=== PATIENT | male | born 1965 | race Caucasian/White ===

== ENCOUNTER 2017-05-09 19:58 | Emergency (ER) | payer OTHER ==
[~2017-05-09] VITALS: Ht 175.3 cm; Wt 105.0 kg
[~2017-05-09 19:58] MED LIST: AMOXICILLIN500 MG PO; ASPIRIN LOW81 M1 PO; BENZONATATE200 MG PO; CEPHALEXIN500 MG PO; CIPRODEX1 ML AS; CIPROFLOXACN500 MG PO; DULCOLAX SS100 MG PO; FLEXERIL PO; HYDROCHLOROT12.5 MG PO; LISINOP/HCTZ1 TAB PO; LISINOPRIL10 MG PO; LORTAB5 PO; LOSARTAN POT50 MG PO; LOSARTAN POTASS50 MG PO; MUCINEX600 MG PO; NO; NORCO1 TA1 PO; NORVASC PO; NORVASC10 M1 PO; PERCOCET 5/325M1 TAB PO; ULTRAM50 M1 PO
[2017-05-09 21:39] LABS: HEMATOCRIT 43.4 % (39.0-50.0); HEMOGLOBIN 15.1 g/dl (14.0-18.0); IMMATURE GRANULOCYTES 0.8 % (0.0-1.0); MEAN CELL VOLUME 83.9 fL CALC (80.0-100.0); MEAN CORPUSCULAR HGB 29.2 pG CALC (26.0-32.0); MEAN CORPUSCULAR HGB CONC 34.8 g/L CALC (32.0-36.0); NEUT# 10.43 thou/uL (1.82-7.42); RED BLOOD COUNT 5.17 mill/uL (4.70-6.10); RED CELL DISTRI WIDTH 13.1 % (11.5-15.5)
[2017-05-09 22:02] LABS: ALBUMIN 4.2 g/dL (3.2-5.0); ALKALINE PHOSPHATASE 81 u/l (38-126); AMYLASE 63 u/l (30-110); ANION GAP 16 (6-22 (CALC)); BILIRUBIN, TOTAL 0.6 mg/dL (0.0-1.4); BUN 13 mg/dL (9-20); BUN/CREATININE RATIO 13 (12-20 (CALC)); CALCIUM 9.3 mg/dL (8.4-10.2); CARBON DIOXIDE 22 mmol/l (22-30); CHLORIDE 106 mmol/l (95-108); GFR > 60 ML/MIN (>=60 (CALC)); GFR FOR AFR.AMER. > 60 ML/MIN (>=60 (CALC)); GLUCOSE 117 mg/dL (75-110); LIPASE 130 u/l (23-300); SGOT/AST 23 u/l (17-59); SGPT/ALT 43 u/l (21-72); SODIUM 140 mmol/l (137-146); TOTAL PROTEIN 7.1 g/dL (6.3-8.2)
[2017-05-09 23:11] LABS: URINE BILIRUBIN - DIPSTICK NEGATIVE (NEGATIVE); URINE BLOOD DIPSTICK NEGATIVE (NEGATIVE); URINE CLARITY CLEAR; URINE COLOR YELLOW; URINE GLUCOSE - DIPSTICK NEGATIVE (NEGATIVE); URINE KETONE NEGATIVE (NEGATIVE); URINE LEUK ESTERASE NEGATIVE (NEGATIVE); URINE NITRITE - DIPSTICK NEGATIVE (Negative); URINE PH 5.5 (4.5-8.0); URINE PROTEIN - DIPSTICK NEGATIVE (NEG-TRACE); URINE SPECIFIC GRAVITY 1.025; URINE UROBILINOGEN - DIPSTICK 0.2 E.U./dL (0.2)
[2017-05-09] MEDS ORDERED: ULTRAM50 M1 PO (23:26)
[2017-05-09 23:35] VITALS: BP 168/74
== END 2017-05-09 23:35 | disposition home or self-care (01) | DRG 395 ==
LOC: ED 19:58
PROVIDERS: Emergency Medicine
DX: K40.90 Unilateral inguinal hernia, without obstruction or gangrene, not specified as recurrent (principal); I10 Essential (primary) hypertension
CPT/HCPCS: Q9967

== ENCOUNTER 2017-10-11 04:11 | Emergency (ER) | payer OTHER ==
[~2017-10-11] VITALS: Ht 175.3 cm; Wt 100.0 kg
[2017-10-11 04:49] LABS: HEMATOCRIT 48.1 % (39.0-50.0); HEMOGLOBIN 16.6 g/dl (14.0-18.0); IMMATURE GRANULOCYTES 0.9 % (0.0-1.0); MEAN CORPUSCULAR HGB 29.7 pG CALC (26.0-32.0); MEAN CORPUSCULAR HGB CONC 34.5 g/L CALC (32.0-36.0); NEUT# 7.28 thou/uL (1.82-7.42); RED BLOOD COUNT 5.59 mill/uL (4.70-6.10); RED CELL DISTRI WIDTH 13.8 % (11.5-15.5)
[2017-10-11 04:55] LABS: ANION GAP 16 (6-22 (CALC)); BUN 17 mg/dL (9-20); BUN/CREATININE RATIO 16 (12-20 (CALC)); CARBON DIOXIDE 23 mmol/l (22-30); CHLORIDE 110 mmol/l (95-108); GFR > 60 ML/MIN (>=60 (CALC)); GFR FOR AFR.AMER. > 60 ML/MIN (>=60 (CALC)); POTASSIUM 3.8 mmol/l (3.5-5.1); SODIUM 145 mmol/l (137-146)
[2017-10-11 04:57] LABS: INTERNATIONAL NORMALIZED RATIO 0.9 RATIO (0.7-1.3); PROTHROMBIN TIME 10.2 SECONDS (9.0-12.5)
[2017-10-11] MEDS ORDERED: ASPIRIN EC325 MG PO (05:01)
[2017-10-11 05:31] VITALS: BP 166/88
== END 2017-10-11 06:00 | disposition short-term general hospital (02) | DRG 282 ==
LOC: ED 04:11
PROVIDERS: Family Medicine
DX: I21.19 ST elevation (STEMI) myocardial infarction involving other coronary artery of inferior wall (principal); I10 Essential (primary) hypertension; R07.9 Chest pain, unspecified

== ENCOUNTER 2018-03-31 00:29 | Observation (INO) | payer OTHER ==
[~2018-03-31] VITALS: Ht 175.3 cm; Wt 100.4 kg
[~2018-03-31 00:29] MED LIST changes: +ASPIRIN EC325 MG PO
--- NOTE | 2018-03-31 00:41 | NUR ---
PT TO ROOM AMBULATORY
--- NOTE | 2018-03-31 01:26 | NUR ---
IV STARTED AND LABS DRAWN. XRAY NOW AT BEDSIDE.
[2018-03-31 01:31] LABS: IMMATURE GRANULOCYTES 0.7 % (0.0-5.0); MEAN CELL VOLUME 83.9 fL CALC (80.0-100.0); MEAN CORPUSCULAR HGB CONC 34.6 g/L CALC (32.0-36.0); NEUT# 9.67 thou/uL (1.82-7.42); RED BLOOD COUNT 4.96 mill/uL (4.70-6.10); RED CELL DISTRI WIDTH 15.1 % (11.5-15.5)
[2018-03-31 01:32] LABS: HEMATOCRIT 41.6 % (39.0-50.0); HEMOGLOBIN 14.4 g/dl (14.0-18.0)
[2018-03-31 01:44] LABS: ALBUMIN 3.6 g/dL (3.2-5.0); AMYLASE 38 u/l (30-110); ANION GAP 16 (6-22 (CALC)); BILIRUBIN, TOTAL 1.1 mg/dL (0.0-1.4); BUN 16 mg/dL (9-20); BUN/CREATININE RATIO 17 (12-20 (CALC)); CARBON DIOXIDE 25 mmol/l (22-30); CHLORIDE 106 mmol/l (95-108); CREATININE 0.9 mg/dL (0.7-1.3); GFR > 60 ML/MIN (>=60 (CALC)); GFR FOR AFR.AMER. > 60 ML/MIN (>=60 (CALC)); LIPASE 70 u/l (23-300); POTASSIUM 4.2 mmol/l (3.5-5.1); SGOT/AST 20 u/l (17-59); SGPT/ALT 29 u/l (21-72); SODIUM 142 mmol/l (137-146); TOTAL PROTEIN 6.5 g/dL (6.3-8.2)
[2018-03-31 01:45] LABS: ALKALINE PHOSPHATASE 123 u/l (38-126)
--- NOTE | 2018-03-31 01:50 | NUR ---
PT VOIDED A SMALL AMT. URINE SENT
--- NOTE | 2018-03-31 01:52 | NUR ---
PT TO CT VIA STRETCHER
[2018-03-31 01:53] LABS: URINE BILIRUBIN - DIPSTICK NEGATIVE (NEGATIVE); URINE BLOOD DIPSTICK NEGATIVE (NEGATIVE); URINE COLOR YELLOW; URINE GLUCOSE - DIPSTICK NEGATIVE (NEGATIVE); URINE KETONE NEGATIVE (NEGATIVE); URINE LEUK ESTERASE NEGATIVE (NEGATIVE); URINE NITRITE - DIPSTICK NEGATIVE (Negative); URINE PH 6.5 (4.5-8.0); URINE PROTEIN - DIPSTICK NEGATIVE (NEG-TRACE)
[2018-03-31 01:54] LABS: URINE CLARITY CLEAR
--- NOTE | 2018-03-31 02:12 | NUR ---
RETURNED FROM XRAY. FLUIDS RE CONNECTED.
--- NOTE | 2018-03-31 02:55 | NUR ---
AT BEDSIDE TO DISCUSS PLAN OF CARE.
[2018-03-31] MEDS ORDERED: LIPITOR80 M1 PO (03:22)
[2018-03-31] MEDS ORDERED: LOSARTAN POT50 MG PO (03:23)
[2018-03-31] MEDS ORDERED: METOPROLOL SUCC50 MG PO (03:23)
--- NOTE | 2018-03-31 03:26 | NUR ---
REPORT TO FRAYA/MED SURG.
--- NOTE | 2018-03-31 03:40 | NUR ---
TO FLOOR VIA STRETCHER WITH IV'S/PUMPS. WITHOUT INCIDENT.
[2018-03-31 03:45] VITALS: BP 158/95
--- NOTE | 2018-03-31 03:45 | NUR ---
PT ARRIVED TO THE FLOOR VIA STRETCHER ACCOMPANIED BY ED NURSE. PT APPEARS TO BE IN STABLE CONDITION UPON ARRIVING TO THE FLOOR. V/S ARE BEING ASSESSED AND PT ORIENTED TO ROOM,CALL SYSTEM,LIGHTS,BED AND TV. PT REQUESTING SOMETHING TO DRINK/PT IS NPO/PROVIDED PT W/MOUTH SWABS FOR COMFORT. IV FLAGYL AND NS ARE RUNNING AT THIS TIME. WILL FOLLOW-UP WITH ZOSYN ORDERED AND FULL ASSESSMENT.
--- NOTE | 2018-03-31 04:26 | NUR ---
PT ASSESSED, LUNG SOUNDS ARE CLEAR, ABD SOFT TENDER TO RIGHT LOWER QUAD, SKIN INTACT, NEURO'S INTACT, BM REPORTED 24HRS AGO AND DENIES DIFFICULTY URINATING, DENIES N/V/SOB OR DIZZINESS. PT ENCOURAGED TO CALL FOR ASSISTANCE AMBULATING DUE TO IV AND MEDICATIONS. PT C/O BEING COLD, BLANKET PROVIDED AND ROOM TURNED WARMER. CALL LIGHT AT SIDE, LIGHTS TURNED LOW
[2018-03-31 07:17] VITALS: BP 135/73
--- NOTE | 2018-03-31 07:17 | NUR ---
PT RESTING IN BED, IVF INFUSING IV SITE APPEARS WELL. PT STATES THAT HE DOES NOT HAVE ANY PAIN AT THIS TIME, ONLY TENDER. REQUESTING FOOD, DISCUSSED POC WITH PT, REINFORCED NPO UNTIL SEEN BY . PT IN AGREEMENT. VSS, ASSESSMENT COMPLETED AT THIS TIME. CALL LIGHT IN REACH,CONTINUE TO MONITOR.
--- NOTE | 2018-03-31 08:55 | NUR ---
ENTERED ROOM WITH OR NURSE DISCUSSED PLAN FOR SURGERY, PT IN AGREEMENT. STATES,"MAKE SURE I HAVE FOOD WHEN I GET BACK" JOKINGLY WITH COOLING SYSTEM OPERATOR. DENTURES AND GLASSES REMOVED AND PLACED ON BEDSIDE TABLE,PT AMBULATED WELL TO STRETCHER.TAKEN DOWN TO OR VIA STRETCHER ACCOMPANIED BY OR NURSE. OR PACKET COMPLETED, AND GIVEN TO OR NURSE.
[2018-03-31 09:31] VITALS: BP 146/74
--- NOTE | 2018-03-31 10:09 | NUR ---
RECEIVED CALL FROM OR PT TO BE TRANSFERRED TO [facility] FOR SURGERY, DUE TO RECENT CARDIAC SURGERY. CALLED [facility] AND FAXED FACE SHEET. WILL RECEIVE A CALL BACK FROM FACILITY.
--- NOTE | 2018-03-31 10:17 | NUR ---
PT RETURNED FROM OR, VIA STRETCHER, SPOKE WITH OR NURSE. CALL LIGHT IN REACH,CONTINUE TO MONITOR.
--- NOTE | 2018-03-31 11:36 | NUR ---
CALL RECEIVED FROM HANNAH AT [facility], ACCEPTANCE BY WILL RETURN CALL WITH BED NUMBER. CONSENT FOR TRANSFER OBTAINED, DISCUSSED PLANS AND TRANSFER PROCESS WITH PT AND FAMILY. CALL LIGHT IN REACH,CONTINUE TO MONITOR.
--- NOTE | 2018-03-31 12:08 | NUR ---
ENTERED ROOM TO START IV ANTIBIOTIC. PT UPSET AND STATES, "I'M THINKING I MIGHT JUST GO AHEAD AND LEAVE AND DRIVE MYSELF TO [place], BECAUSE I'M TIRED OF WAITING." INFORMED PT THAT HE HAS PT RIGHTS AND MAY LEAVE AMA BUT IF HE WENT TO [facility] HIMSELF HE WOULD HAVE TO BE SEEN IN THE ER AND HAVE A WORK UP DONE. PT REPLIED,"IF YOU DONT HEAR ANYTHING ABOUT A BED BY 1 o' CLOCK I'M LEAVING." NOTIFIED NURSING PAVING INSPECTOR, AWAITING ARRIVAL.
--- NOTE | 2018-03-31 12:42 | NUR ---
NURSING STAFF WEAPONS OFFICER TO FLOOR, DISCUSSED POC FOR PT, STAFF WEAPONS OFFICER CALLED AND SPOKE WITH HANANH AT [facility]. THEN ENTERED ROOM TO DISCUSS POC. PT DECIDED HE WOULD STAY AND FOLLOW THROUGH WITH TRANSFER FROM OUR FACILITY. CALL LIGHT IN REACH,CONTINUE TO MONITOR.
--- NOTE | 2018-03-31 14:11 | NUR ---
RECEIVED CALL FROM [facility] PT HAS A BED, 6[facility]B AT [facility]. TRANSPORT CALLED AND ETA 1600. PT AND NOTIFIED. BOTH IN AGREEMENT. CALL LIGHT IN REACH,CONTINUE TO MONITOR.
--- NOTE | 2018-03-31 16:07 | NUR ---
[facility] CALLED ETA 20-30 MIN, PT AND NOTIFIED. CONTINUE TO MONITOR.
--- NOTE | 2018-03-31 16:33 | NUR ---
[facility] AT BEDSIDE, PT TAKEN TO [facility] VIA STRETCHER ACCOMPANIED BY TRANSPORT TEAM.
--- NOTE | 2018-03-31 16:38 | NUR ---
Discharge instructions given. Patient verbalizes understanding of same. Discharged in stable condition via Stretcher to [facility] with spouse. All belongings sent with pt.
--- NOTE | 2018-03-31 16:56 | NUR ---
REPORT CALLED TO [facility] AT [facility]
== END 2018-03-31 16:38 | disposition short-term general hospital (02) | DRG 395 ==
LOC: ED 00:29 → ED-I 02:30 → ED 03:00 → MS2 03:01
PROVIDERS: Emergency Medicine; ADMIT Internal Medicine; ATTEND Internal Medicine
DX: K35.80 Unspecified acute appendicitis (principal); I10 Essential (primary) hypertension; I25.10 Atherosclerotic heart disease of native coronary artery without angina pectoris; I48.91 Unspecified atrial fibrillation; I25.2 Old myocardial infarction; F17.210 Nicotine dependence, cigarettes, uncomplicated; Z95.1 Presence of aortocoronary bypass graft
CPT/HCPCS: G0378; Q9967; S0164

== ENCOUNTER 2019-01-15 19:23 | Emergency (ER) | payer OTHER ==
[~2019-01-15] VITALS: Ht 175.3 cm; Wt 97.0 kg
[~2019-01-15 19:23] MED LIST changes: +LIPITOR80 M1 PO; +METOPROLOL SUCC50 MG PO
[2019-01-15 20:06] LABS: HEMOGLOBIN 14.6 g/dl (14.0-18.0); IMMATURE GRANULOCYTES 0.9 % (0.0-5.0); MEAN CELL VOLUME 86.3 fL CALC (80.0-100.0); MEAN CORPUSCULAR HGB 29.3 pG CALC (26.0-32.0); NEUT# 7.17 thou/uL (1.82-7.42); RED BLOOD COUNT 4.98 mill/uL (4.70-6.10); RED CELL DISTRI WIDTH 13.6 % (11.5-15.5)
[2019-01-15] MEDS ORDERED: ASPIRIN81 MG PO (20:16)
[2019-01-15 20:20] LABS: ALKALINE PHOSPHATASE 120 u/l (38-126); ANION GAP 14 (6-22 (CALC)); BILIRUBIN, TOTAL 0.7 mg/dL (0.0-1.4); BUN 17 mg/dL (9-20); BUN/CREATININE RATIO 17 (12-20 (CALC)); CARBON DIOXIDE 22 mmol/l (22-30); CHLORIDE 109 mmol/l (95-108); ETHYL ALCOHOL 0 mg/dl (0-30); GFR > 60 ML/MIN (>=60 (CALC)); GFR FOR AFR.AMER. > 60 ML/MIN (>=60 (CALC)); POTASSIUM 3.9 mmol/l (3.5-5.1); SGOT/AST 21 u/l (17-59); SODIUM 141 mmol/l (137-146); TOTAL PROTEIN 6.9 g/dL (6.3-8.2)
[2019-01-15 20:30] LABS: MYOGLOBIN 42 ng/mL (0 - 121)
[2019-01-15 20:33] LABS: URINE BILIRUBIN - DIPSTICK NEGATIVE (NEGATIVE); URINE BLOOD DIPSTICK TRACE-INTACT (NEGATIVE); URINE COLOR YELLOW; URINE GLUCOSE - DIPSTICK NEGATIVE (NEGATIVE); URINE KETONE NEGATIVE (NEGATIVE); URINE LEUK ESTERASE NEGATIVE (NEGATIVE); URINE NITRITE - DIPSTICK NEGATIVE (Negative); URINE PH 5.5 (4.5-8.0); URINE PROTEIN - DIPSTICK NEGATIVE (NEG-TRACE); URINE SPECIFIC GRAVITY 1.025; URINE UROBILINOGEN - DIPSTICK 0.2 E.U./dL (0.2)
[2019-01-15 20:34] LABS: BARBITURATES NEGATIVE (NEGATIVE); COCAINE NEGATIVE (NEGATIVE); METHADONE NEGATIVE (NEGATIVE); OXCYCODONE NEGATIVE (NEGATIVE); TETRAHYDROCANNABIONOL NEGATIVE (NEGATIVE); TRICYLIC ANTIDEPRESSANTS NEGATIVE (NEGATIVE)
[2019-01-15 23:40] VITALS: BP 152/64
== END 2019-01-16 00:04 | disposition home or self-care (01) | DRG 310 ==
LOC: ED 19:23
PROVIDERS: Emergency Medicine
DX: R00.2 Palpitations (principal); I10 Essential (primary) hypertension; F17.200 Nicotine dependence, unspecified, uncomplicated; I25.2 Old myocardial infarction; Z95.1 Presence of aortocoronary bypass graft

== ENCOUNTER 2021-04-11 11:37 | Observation (INO) | payer OTHER ==
[~2021-04-11] VITALS: Ht 175.3 cm; Wt 105.0 kg
[~2021-04-11 11:37] MED LIST changes: +ASPIRIN81 MG PO
[2021-04-11 13:00] LABS: HEMATOCRIT 39.8 % (39.0-50.0); HEMOGLOBIN 13.9 g/dl (14.0-18.0); IMMATURE GRANULOCYTES 0.5 % (0.0-5.0); MEAN CELL VOLUME 83.3 fL CALC (80.0-100.0); MEAN CORPUSCULAR HGB 29.1 pG CALC (26.0-32.0); MEAN CORPUSCULAR HGB CONC 34.9 g/dL CAL (32.0-36.0); NEUT# 8.12 thou/uL (1.82-7.42); RED BLOOD COUNT 4.78 mill/uL (4.70-6.10); RED CELL DISTRI WIDTH 13.4 % (11.5-15.5)
[2021-04-11 13:11] LABS: ALBUMIN 3.6 g/dL (3.2-5.0); ALKALINE PHOSPHATASE 180 u/l (38-126); BUN 13 mg/dL (9-20); BUN/CREATININE RATIO 13 (12-20 (CALC)); CARBON DIOXIDE 22 mmol/l (22-30); GFR > 60 ML/MIN (>=60 (CALC)); GFR FOR AFR.AMER. > 60 ML/MIN (>=60 (CALC)); POTASSIUM 3.9 mmol/l (3.5-5.1)
[2021-04-11 13:15] LABS: ANION GAP 12 (6-22 (CALC)); BILIRUBIN, TOTAL 1.6 mg/dL (0.0-1.4); CHLORIDE 94 mmol/l (95-108); SGOT/AST 57 u/l (17-59); SODIUM 124 mmol/l (137-146)
[2021-04-11 19:48] VITALS: BP 94/48
[2021-04-11 22:48] VITALS: BP 103/59
[2021-04-12 00:48] VITALS: BP 114/60
[2021-04-12 03:48] VITALS: BP 94/54
[2021-04-12 06:01] LABS: HEMATOCRIT 35.6 % (39.0-50.0); HEMOGLOBIN 12.6 g/dl (14.0-18.0); MEAN CELL VOLUME 84.2 fL CALC (80.0-100.0); MEAN CORPUSCULAR HGB 29.8 pG CALC (26.0-32.0); MEAN CORPUSCULAR HGB CONC 35.4 g/dL CAL (32.0-36.0); RED BLOOD COUNT 4.23 mill/uL (4.70-6.10); RED CELL DISTRI WIDTH 13.6 % (11.5-15.5)
[2021-04-12 06:29] LABS: ANION GAP 10 (6-22 (CALC)); BUN 12 mg/dL (9-20); BUN/CREATININE RATIO 15 (12-20 (CALC)); CARBON DIOXIDE 22 mmol/l (22-30); CHLORIDE 100 mmol/l (95-108); CREATININE 0.8 mg/dL (0.7-1.3); GFR > 60 ML/MIN (>=60 (CALC)); GFR FOR AFR.AMER. > 60 ML/MIN (>=60 (CALC)); MAGNESIUM 2.3 mg/dL (1.6-2.3); POTASSIUM 3.8 mmol/l (3.5-5.1); SODIUM 129 mmol/l (137-146)
[2021-04-12] MEDS ORDERED: OMNICEF300 MG PO (10:24)
[2021-04-12] MEDS ORDERED: AZITHROMYCIN500 MG PO (10:25)
[2021-04-12 12:08] VITALS: BP 118/61
== END 2021-04-12 13:56 | disposition home or self-care (01) | DRG 194 ==
LOC: ED 11:37 → ED-I 14:00 → ED 14:19 → ED-I 14:20
PROVIDERS: Family Medicine; Nurse Practitioner; ADMIT Hospitalist; ATTEND Hospitalist
DX: J18.9 Pneumonia, unspecified organism (principal); E87.1 Hypo-osmolality and hyponatremia; I10 Essential (primary) hypertension; I25.10 Atherosclerotic heart disease of native coronary artery without angina pectoris; E78.5 Hyperlipidemia, unspecified; I25.2 Old myocardial infarction; F17.200 Nicotine dependence, unspecified, uncomplicated; Z95.1 Presence of aortocoronary bypass graft; Z20.822 Contact with and (suspected) exposure to COVID-19
CPT/HCPCS: J1650

== ENCOUNTER 2022-08-20 22:37 | Observation (INO) | payer OTHER ==
[~2022-08-20] VITALS: Ht 175.3 cm; Wt 102.0 kg
[~2022-08-20 22:37] MED LIST changes: +AZITHROMYCIN500 MG PO; +OMNICEF300 MG PO
[2022-08-20 22:49] VITALS: BP 165/89
[2022-08-20 23:01] VITALS: BP 138/83
[2022-08-20 23:16] VITALS: BP 121/83
[2022-08-20 23:19] LABS: BASO% 0.6 % (0-3); EOS% 2.3 % (0-8); IMMATURE GRANULOCYTES 0.4 % (0.0-5.0); LYMPH% 21.2 % (15-41); MEAN CELL VOLUME 83.1 fL CALC (80.0-100.0); MEAN CORPUSCULAR HGB CONC 34.9 g/dL CAL (32.0-36.0); MONO% 9.4 % (2-13); NEUT# 8.32 thou/uL (1.82-7.42); NEUT% 66.1 % (42-76); RED BLOOD COUNT 5.27 mill/uL (4.70-6.10); RED CELL DISTRI WIDTH 14.5 % (11.5-15.5)
[2022-08-20 23:31] VITALS: BP 93/61
[2022-08-20 23:32] LABS: HEMATOCRIT 43.8 % (39.0-50.0); HEMOGLOBIN 15.3 g/dl (14.0-18.0)
[2022-08-20 23:34] LABS: D-DIMER 0.31 mg/L (0.19-0.60)
[2022-08-20 23:40] LABS: ACT PARTIAL THROMBO TIME 28.7 SECONDS (20.0-32.5); INTERNATIONAL NORMALIZED RATIO 1.1 RATIO (0.7-1.3); PROTHROMBIN TIME 10.5 SECONDS (9.0-12.5)
[2022-08-20 23:45] VITALS: BP 103/74
[2022-08-20 23:45] LABS: ALBUMIN 3.8 g/dL (3.2-5.0); ALKALINE PHOSPHATASE 126 u/l (38-126); BUN 23 mg/dL (9-20); CARBON DIOXIDE 24 mmol/l (22-30); CHLORIDE 106 mmol/l (95-108); POTASSIUM 4.1 mmol/l (3.5-5.1); SGOT/AST 30 u/l (17-59); TOTAL PROTEIN 6.7 g/dL (6.3-8.2)
[2022-08-20 23:51] LABS: ANION GAP 12 (6-22 (CALC)); BILIRUBIN, TOTAL 0.7 mg/dL (0.0-1.4); BUN/CREATININE RATIO 12 (12-20 (CALC)); GFR FOR AFR.AMER. 42 ML/MIN (>=60 (CALC)); GFR OTHER RACES 34 ML/MIN (>=60 (CALC)); SODIUM 138 mmol/l (137-146)
[2022-08-20 23:58] LABS: MYOGLOBIN 67 ng/mL (0 - 121)
[2022-08-21] VITALS (16 sets, daily range): BP systolic 91–124; BP diastolic 46–75
[2022-08-21 02:54] LABS: URINE BILIRUBIN - DIPSTICK NEGATIVE (NEGATIVE); URINE BLOOD DIPSTICK TRACE-INTACT (NEGATIVE); URINE COLOR YELLOW; URINE GLUCOSE - DIPSTICK NEGATIVE (NEGATIVE); URINE KETONE NEGATIVE (NEGATIVE); URINE LEUK ESTERASE NEGATIVE (NEGATIVE); URINE NITRITE - DIPSTICK NEGATIVE (Negative); URINE PROTEIN - DIPSTICK NEGATIVE (NEG-TRACE); URINE SPECIFIC GRAVITY 1.015; URINE UROBILINOGEN - DIPSTICK 0.2 E.U./dL (0.2)
[2022-08-21 10:02] LABS: ANION GAP 10 (6-22 (CALC)); BUN 18 mg/dL (9-20); BUN/CREATININE RATIO 17 (12-20 (CALC)); CARBON DIOXIDE 23 mmol/l (22-30); CHLORIDE 108 mmol/l (95-108); CREATININE 1.1 mg/dL (0.7-1.3); GFR FOR AFR.AMER. > 60 ML/MIN (>=60 (CALC)); GFR OTHER RACES > 60 ML/MIN (>=60 (CALC)); POTASSIUM 4.3 mmol/l (3.5-5.1); SODIUM 137 mmol/l (137-146)
[2022-08-21] MEDS ORDERED: XARELTO15 MG PO (10:56)
== END 2022-08-21 11:20 | disposition home or self-care (01) | DRG 310 ==
LOC: ED 22:37 → ED-I 08-21 00:30 → ED 08-21 00:45 → ICU 08-21 00:46
PROVIDERS: Family Medicine; ADMIT Internal Medicine; ATTEND Internal Medicine
DX: I48.91 Unspecified atrial fibrillation (principal); I10 Essential (primary) hypertension; I25.10 Atherosclerotic heart disease of native coronary artery without angina pectoris; E78.5 Hyperlipidemia, unspecified; I25.2 Old myocardial infarction; F17.200 Nicotine dependence, unspecified, uncomplicated; Z95.1 Presence of aortocoronary bypass graft; Z79.82 Long term (current) use of aspirin
CPT/HCPCS: J1650

== ENCOUNTER 2024-09-19 17:14 | Emergency (ER) | payer OTHER ==
[2024-09-19] VITALS (8 sets, daily range): BP systolic 125–165; BP diastolic 68–90
[~2024-09-19] VITALS: Ht 175.3 cm; Wt 101.0 kg
[~2024-09-19 17:14] MED LIST changes: +KEFLEX500 MG PO; +PERCOCET 5/321 COMBO PO; +TRAMADOL HYDROC50 M1 PO; +XARELTO15 MG PO
[2024-09-19] MEDS ORDERED: methylPREDNISolone SODIUM SUCC 125 MG/2 ML SDV IV ONE (18:10)
[2024-09-19] MEDS ORDERED: IPRATROPIUM-Albuterol 0.5MG-2.5MG/3 ML NEB ONE (18:10)
[2024-09-19 18:16] LABS: BASO% 0.8 % (0-3); EOS% 0.6 % (0-8); HEMATOCRIT 46.3 % (39.0-50.0); HEMOGLOBIN 15.7 g/dl (14.0-18.0); IMMATURE GRANULOCYTES 0.3 % (0.0-5.0); LYMPH% 10.9 % (15-41); MEAN CELL VOLUME 86.7 fL CALC (80.0-100.0); MEAN CORPUSCULAR HGB 29.4 pG CALC (26.0-32.0); MEAN CORPUSCULAR HGB CONC 33.9 g/dL CAL (32.0-36.0); MONO% 10.2 % (2-13); NEUT# 5.98 thou/uL (1.82-7.42); NEUT% 77.2 % (42-76); RED BLOOD COUNT 5.34 mill/uL (4.70-6.10); RED CELL DISTRI WIDTH 14.4 % (11.5-15.5)
[2024-09-19 18:32] LABS: ALBUMIN 3.6 g/dL (3.2-5.0); BILIRUBIN, TOTAL 1.2 mg/dL (0.2-1.3); CREATININE 1.1 mg/dL (0.7-1.3); POTASSIUM 4.3 mmol/l (3.5-5.1); TOTAL PROTEIN 6.4 g/dL (6.3-8.2)
[2024-09-19] MEDS ORDERED: PROAIR HFA IN (19:21)
[2024-09-19] MEDS ORDERED: ZPAK PO (19:21)
[2024-09-19] MEDS ORDERED: PREDNISONE20 MG PO (19:21)
[2024-09-19] MEDS ORDERED: AZITHROMYCIN 250 MG/TAB PO ONE (19:25)
[2024-09-19] MEDS ORDERED: IPRATROPIUM BROMIDE 0.5 MG/2.5 ML SOL IN ONE (19:30)
[2024-09-19] MEDS ORDERED: ALBUTEROL SULFATE 8 GM INH INHW/SPAC ONE (19:40)
== END 2024-09-19 19:50 | disposition home or self-care (01) | DRG 153 ==
LOC: ED 17:14
PROVIDERS: Emergency Medicine
DX: J06.9 Acute upper respiratory infection, unspecified (principal); J45.909 Unspecified asthma, uncomplicated; I10 Essential (primary) hypertension; I25.2 Old myocardial infarction; Z95.1 Presence of aortocoronary bypass graft; F17.200 Nicotine dependence, unspecified, uncomplicated; Z20.822 Contact with and (suspected) exposure to COVID-19